=== PATIENT | male | born 1975 | race Caucasian/White ===

== ENCOUNTER 2016-11-03 18:11 | Emergency (ER) | payer OTHER ==
[2016-11-03 18:15] VITALS: BP 147/84; TEMP 97.8; BMI 25.4
--- NOTE | 2016-11-03 19:09 | PDOC ---
History of Present Illness - General History Source: Patient, Family Exam Limitations: No Limitations - History of Present Illness Initial Comments: 11/03/16 19:30 The patient is a 41 year old male presentimg with his family, with a significant past medical history of hemrrhoids and fatty liver, who presents to the emergency department with headache, dizziness, chest pain, numbness, nausea and vomiting for the past week. He describes his headahce as ranging from mild to moderate, without radiation or modifying factors. He notes that his vomit is yellow in consistency and notes that is nonbilious and nonbloody. He describes his chest pain as mild, without radiation or modifying factors. 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 He notes that he has been working harder than usual lately. He also notes that he has experienced loss of appetite during this time frame. The patient denies shortness of breath, fever, chills, diarrhea and constipation. Denies dysuria, frequency, urgency and hematuria. Allergies: None Past surgical history: None reported Social history: Alcohol use. No tobacco or drug use reported <Naga Anaya - Last Filed: 11/03/16 19:36> <Charu Wood - Last Filed: 11/04/16 05:42> - General Chief Complaint: Headache Stated Complaint: HEADACHE/NAUSEA/BREATHING Time Seen by Provider: 11/03/16 19:09 Past History <Naga Anaya - Last Filed: 11/03/16 19:36> - Past Medical History GI Disorders: Yes (HEMORRHOIDS.) - Psycho/Social/Smoking Cessation Hx Anxiety: No Suicidal Ideation: No Smoking History: Never smoked Hx Alcohol Use: Yes ("SOMETIMES") Drug/Substance Use Hx: No Substance Use Type: Alcohol <Charu Wood - Last Filed: 11/04/16 05:42> - Past Medical History Allergies/Adverse Reactions: Allergies Allergy/AdvReac Type Severity Reaction Status Date / Time No Known Allergies Allergy Verified 11/03/16 18:12 Home Medications: Ambulatory Orders Acetaminophen [Tylenol] 2 tab PO BID #40 tablet 11/03/16 Azithromycin [Zithromax Tri-Aidan (3 DAYS) -] 500 mg PO DAILY #3 tablet 11/03/16 Review of Systems - Review of Systems Able to Perform ROS?: Yes Comments:: 11/03/16 19:30 GENERAL/CONSTITUTIONAL: +Loss of appetite. No fever or chills. No weakness. HEAD, EYES, EARS, NOSE AND THROAT: No change in vision. No ear pain or discharge. No sore throat. CARDIOVASCULAR: +Chest pain. No shortness of breath RESPIRATORY: No cough, wheezing, or hemoptysis. GASTROINTESTINAL: +Nausea and vomiting. No diarrhea or constipation. GENITOURINARY: No dysuria, frequency, or change in urination. MUSCULOSKELETAL: No joint or muscle swelling or pain. No neck or back pain. SKIN: No rash NEUROLOGIC: +Headache and dizziness. No loss of consciousness, or change in strength/sensation. ENDOCRINE: No increased thirst. No abnormal weight change HEMATOLOGIC/LYMPHATIC: No anemia, easy bleeding, or history of blood clots. ALLERGIC/IMMUNOLOGIC: No hives or skin allergy. <Naga Anaya - Last Filed: 11/03/16 19:36> *Physical Exam - Vital Signs Last Vital Signs Temp Pulse Resp BP Pulse Ox 97.8 F 69 18 147/84 98 11/03/16 18:12 11/03/16 18:12 11/03/16 18:12 11/03/16 18:12 11/03/16 18:12 - Physical Exam Comments: 11/03/16 19:32 GENERAL: Awake, alert, and fully oriented, in no acute distress HEAD: No signs of trauma, normocephalic, atraumatic EYES: PERRLA, EOMI, sclera anicteric, conjunctiva clear ENT: Auricles normal inspection, hearing grossly normal, nares patent, oropharynx clear without exudates. Moist mucosa NECK: Normal ROM, supple, no lymphadenopathy, JVD, or masses LUNGS: No distress, speaks full sentences, clear to auscultation bilaterally HEART: Regular rate and rhythm, normal S1 and S2, no murmurs, rubs or gallops, peripheral pulses normal and equal bilaterally. ABDOMEN: Soft, nontender, normoactive bowel sounds. No guarding, no rebound. No masses EXTREMITIES: Normal inspection, Normal range of motion, no edema. No clubbing or cyanosis. NEUROLOGICAL: Cranial nerves II through XII grossly intact. Normal speech, normal gait, no focal sensorimotor deficits SKIN: Warm, Dry, normal turgor, no rashes or lesions noted. <Naga Anaya - Last Filed: 11/03/16 19:36> - Vital Signs Last Vital Signs Temp Pulse Resp BP Pulse Ox 97.8 F 69 18 147/84 98 11/03/16 18:12 11/03/16 18:12 11/03/16 18:12 11/03/16 18:12 11/03/16 18:12 <Charu Wood - Last Filed: 11/04/16 05:42> Heart Score/ECG Review #1 ECG reviewed & interpreted by me at: 19:36 11/03/16 19:30 Vent rate: 63 bpm Normal sinus rhythm <Naga Anaya Kimmie - Last Filed: 11/03/16 19:36> ED Treatment Course - LABORATORY CBC & Chemistry Diagram: 11/03/16 19:30 11/03/16 19:30 <Charu Wood - Last Filed: 11/04/16 05:42> Medical Decision Making - Medical Decision Making 11/03/16 20:39 Patient Name: Reginaldo Wild THIS IS A 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 FINDINGS: The liver is mildly enlarged measuring 17.7 cm in sagittal length with mild fatty changes. No intrahepatic biliary dilatation. No hepatic masses visualized The common bile duct is within normal limits measuring 3 mm. There are no stones or sludge visualized in the gallbladder. Gallbladder wall is normal in thickness measuring 2.7 mm. 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 COMPARISON: None. FINDINGS: No acute intracranial hemorrhage mass effect or midline shift. Choe-white differentiation is maintained. Ventricles sulci and basilar cisterns appear unremarkable. Calvarium is intact. Mild mucosal thickening throughout the sinuses. The mastoid air cells are clear. IMPRESSION No acute intracranial hemorrhage mass effect or midline shift. Mild sinusitis. THIS DOCUMENT HAS BEEN ELECTRONICALLY SIGNED 11/04/16 05:40 Pt comes with dizziness, weakness, listlessness at times. 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 Pt has totally normal labs,exam, TSH, EKG, head CT. CXR reveals an enlarged heart. He was asked to follow with cardiology for an echocardiogram and to follow up to see if he has HTN <Charu Wood - Last Filed: 11/04/16 05:42> *DC/Admit/Observation/Transfer - Attestations Scribe Attestion: 11/03/16 19:32 Documentation prepared by Naga Anaya, acting as medical surgical tech for Charu Wood MD <Naga Anaya - Last Filed: 11/03/16 19:36> - Discharge Dispostion Admit: No <Charu Wood - Last Filed: 11/04/16 05:42> Diagnosis at time of Disposition: Enlarged heart, Sinusitis - Discharge Dispostion Disposition: HOME Condition at time of disposition: Stable - Prescriptions Prescriptions: Acetaminophen [Tylenol] 2 tab PO BID #40 tablet Azithromycin [Zithromax Tri-Aidan (3 DAYS) -] 500 mg PO DAILY #3 tablet - Referrals Referrals: Sea Gaines MD [Staff Physician] - - Patient Instructions Printed Discharge Instructions: Echocardiogram, DI for Sinusitis Additional Instructions: Dr. Bucky Pantoja, [facility] - Post Discharge Activity Work/School Note: Back to Work
[2016-11-03] MEDS ORDERED: FOLIC ACID INJECTION - 1 MG, THIAMINE HCL 100 MG, MULTIVIT INJECTION ADULT 10 ML in SOD... IVPB ONE (19:18)
[2016-11-03 19:41] LABS: BASOPHIL 0.6 % (0-2.0); EOSINOPHIL 6.4 % (0-4.5); MEAN CELL VOLUME 88.1 fl (80-96); MEAN PLT VOLUME 7.3 fl (7.5-11.1); NEUTROPHILS 45.8 % (42.8-82.8); PLATELET COUNT 232 K/MM3 (134-434); RDW 13.6 % (11.9-15.9); WHITE BLOOD COUNT 7.1 K/mm3 (4.0-10.0)
[2016-11-03 19:52] LABS: INR 1.01 (0.82-1.09); PROTHROMBIN TIME (PATIENT) 11.1 SEC (9.98-11.88)
[2016-11-03 20:00] LABS: URINE APPEARANCE CLEAR; URINE BILIRUBIN NEGATIVE (NEGATIVE); URINE COLOR STRAW; URINE GLUCOSE (UA) NEGATIVE (NEGATIVE); URINE KETONE NEGATIVE (NEGATIVE); URINE LEUK ESTERASE NEGATIVE (NEGATIVE); URINE NITRITE NEGATIVE (NEGATIVE); URINE PROTEIN NEGATIVE (NEGATIVE); URINE UROBILINOGEN NEGATIVE E.U./dl (0.2-1.0)
[2016-11-03 20:02] LABS: URINE BLOOD 1+ (NEGATIVE)
[2016-11-03 20:03] LABS: URINE RBC 2 /hpf (0-3); URINE WBC <1 /hpf (3-5)
[2016-11-03 20:05] LABS: ALBUMIN 3.9 g/dl (3.4-5.0); AMYLASE 62 U/L (25-115); ANION GAP 9 (8-16); BILIRUBIN,TOTAL 0.3 mg/dL (0.2-1.0); CALCIUM 8.6 mg/dL (8.5-10.1); CO2 26 mmol/L (21-32); COCKROFT - GAULT 155.5; CREATININE 0.9 mg/dL (0.7-1.3); GLUCOSE,RANDOM 90 mg/dL (74-106); SGOT/AST 13 U/L (15-37); SGPT/ALT 23 U/L (12-78); TOT PROT 6.8 g/dl (6.4-8.2)
[2016-11-03 20:14] LABS: ALK PHOS 69 U/L (45-117); THYROID STIMULATING HORMONE 3.03 uIU/ml (0.358-3.74)
[2016-11-03] MEDS ORDERED: ACETAMINOPHEN 325 MG TABLET (FP) PO ONE (20:49)
[2016-11-03] MEDS ORDERED: ACETAMINOPHEN 325 MG TABLET (FP) ONE (20:50)
[2016-11-03 22:41] VITALS: PULSE 72
--- NOTE | 2016-11-04 11:07 | EKG ---
Test Reason : Blood Pressure : / mmHG Vent. Rate : 063 BPM Atrial Rate : 063 BPM P-R Int : 148 ms QRS Dur : 088 ms QT Int : 394 ms P-R-T Axes : 044 062 029 degrees QTc Int : 403 ms NORMAL SINUS RHYTHM NORMAL ECG NO PREVIOUS ECGS AVAILABLE Confirmed by LUPE PEREZ MD ([id number]) on 11/04/2016 11:07:10 AM Referred By: Confirmed By:LUPE PEREZ MD
== END 2016-11-03 22:42 | disposition home or self-care (01) ==
LOC: JER 18:11
PROC: 3E033GC Introduction of Other Therapeutic Substance into Peripheral Vein, Percutaneous Approach (ICD-10-PCS; principal; 2016-11-03)
DX: I51.7 Cardiomegaly (principal); J32.8 Other chronic sinusitis
CPT/HCPCS: 36415; 70450-TC; 71020-TC; 76705-TC; 80053; 81003; 81015; 82150; 83690; 84443; 85025; 85610; 93005; 93010; 96365; 96366; 99283-25